=== PATIENT | female | born 2000 | race Caucasian/White ===

== ENCOUNTER 2023-04-22 10:29 | Outpatient (OUT) | payer BC, OTHER, SELFPAY ==
--- NOTE | 2023-04-22 10:32 | US_ITS ---
[address] [address] Patient Name: INO BUCHANAN MRN: [id number] date: 2000 Sex: F Assigned Patient Location: US Current Patient Location: [facility] [place] Accession/Order Number: [id number] Exam Date: 04/22/2023 10:33 Report Date: 04/22/2023 13:40 At the request of: HALIE BARNARD Procedure: US OB growth EXAMINATION: US OB growth HISTORY: SIZE INCONSISTENT WITH DATES COMPARISON: Ultrasound anatomy 01/20/2023 FINDINGS: Heart Rate: 153.0 bpm Number: 1.0 Position: CEPHALIC Amniotic Fluid Volume: 19.9 cm Maximum Vertical Pocket: 8.0 cm BIOMETRY: BPD: 8.6 cm cm; 34 weeks 4 days; 82% HC: 31.0 cmcm; 34 weeks 5 days; 49% AC: 29.3 cm cm; 33 weeks 2 days; 51% FL: 6.6 cm cm; 34 weeks 1 days; 64% EFW: 2276.2 grams; 57% FL/AC: 22.7 FL/BPD: 77.3 HC/AC: 1.1 GESTATIONAL AGE: Age by EDC: 33 weeks 2 days LEIDY by EDC: 06/08/2023 Age by US: 34 weeks 1 day LEIDY by US: 06/02/2023 US/US OB growth IMPRESSION: 1. Single live intrauterine with growth detailed above. 2. No evidence of a nuchal cord. Electronically authenticated by: ERIC LENNON Date: 04/22/2023 13:40
== END 2023-04-22 10:30 | disposition home or self-care (01) ==
LOC: US 10:29
PROVIDERS: Visit Provider Obstetrics & Gynecology
DX: O26.843 Uterine size-date discrepancy, third trimester (principal); Z3A.33 33 weeks gestation of pregnancy
CPT/HCPCS: 76816

== ENCOUNTER 2023-04-22 12:09 | Outpatient (OUT) | payer OTHER, BC, SELFPAY ==
--- NOTE | 2023-04-22 12:14 | US_ITS ---
[address] [address] Patient Name: INO BUCHANAN MRN: [id number] date: 2000 Sex: F Assigned Patient Location: [facility] Current Patient Location: Accession/Order Number: [id number] Exam Date: 04/22/2023 13:00 Report Date: 04/22/2023 13:38 At the request of: HALIE BARNARD Procedure: US OB BPP w non-stress EXAMINATION: US OB BPP w non-stress HISTORY: , itching COMPARISON: Ultrasound anatomy 01/20/2023 TECHNIQUE: Ultrasound biophysical profile was performed in the radiology department. BREATHING MOVEMENTS: 2.0 GROSS BODY MOVEMENTS: 2.0 TONE: 2.0 QUALITATIVE AMNIOTIC FLUID VOLUME: 2.0 PRESENTATION: CEPHALIC HEART RATE: 135.0 bpm bpm. AMNIOTIC FLUID VOLUME: 21.6 cm GESTATIONAL AGE: 33 weeks 2 days CONCLUSION: Total biophysical profile score 8.0. Electronically authenticated by: ERIC LENNON Date: 04/22/2023 13:38
[2023-04-22 12:23] VITALS: BP 116/68; PULSE 99
[2023-04-22 13:46] LABS: Alanine Aminotransferase 25 U/L (14-59); Albumin Globulin Ratio 0.6; Albumin Level 2.5 g/dL (3.4-5.0); Alkaline Phosphatase 173 U/L (46-116); Aspartate Amino Transferase 16 U/L (15-37); Bilirubin Direct 0.1 mg/dL (0.0-0.2); Bilirubin Total 0.2 mg/dL (0.2-1.0); Globulin 4.4 g/dL; Total Protein 6.9 g/dL (6.4-8.2)
[2023-04-23 17:07] LABS: Bile Acids 4.3 umol/L (0.0-10.0)
== END 2023-04-22 13:30 | disposition home or self-care (01) ==
LOC: FBCO 12:10 → FBC 12:14
PROVIDERS: Visit Provider Obstetrics & Gynecology
DX: O26.843 Uterine size-date discrepancy, third trimester (principal); O26.893 Other specified pregnancy related conditions, third trimester; Z3A.33 33 weeks gestation of pregnancy; L29.9 Pruritus, unspecified
CPT/HCPCS: 36415; 76816; 76818; 80076; 82239

== ENCOUNTER 2023-05-05 10:41 | Observation (INO) | payer OTHER, BC, SELFPAY ==
[2023-05-05 11:04] VITALS: BP 119/71; PULSE 115
[2023-05-05 11:15] LABS: Bilirubin Urine NEGATIVE (NEGATIVE); Blood Urine NEGATIVE (NEGATIVE); Clarity Urine CLEAR (CLEAR); Color Urine LT. YELLOW (YELLOW); Glucose Urine UA NEGATIVE (NEGATIVE); Ketones Urine NEGATIVE (NEGATIVE); Leukocyte Esterase Urine MODERATE (NEGATIVE); Nitrite Urine NEGATIVE (NEGATIVE); Protein Urine NEGATIVE (NEG/TRACE); Specific Gravity Urine 1.015 (1.005-1.025); Urobilinogen Urine 0.2 EU/dL (0.2-1.0); pH Urine 7.5 (5.0-9.0)
[2023-05-05 11:16] LABS: Urine Microscopic Indicated YES
[2023-05-05 11:23] LABS: Bacteria Urine TRACE #/HPF (NONE SEEN); Cast Seen? NONE SEEN #/LPF (NONE SEEN); Crystals Seen? None Seen #/HPF (None Seen); Mucus Urine TRACE (NONE SEEN); RBC Urine 0-2 #/HPF (0-2); Squamous Epithelial Cell Urine MODERATE #/LPF (NONE/RARE); Urine Culture Indicated YES
[2023-05-05 12:06] LABS: Basophils Percent Auto 0.3 % (0.2-2.0); Eosinophils Absolute Auto 0.1 10^3/uL (0.0-0.7); Eosinophils Percent Auto 0.7 % (0.9-7.0); Hematocrit 35.4 % (36.0-48.0); Hemoglobin 11.7 g/dL (12.0-16.0); Immature Granulocytes Abs Auto 0.09 10^3/uL (0.00-0.03); Lymphocytes Absolute Auto 1.7 10^3/uL (1.2-3.8); Lymphocytes Percent Auto 18.1 % (20.5-60.0); Mean Corpuscular HGB Conc 33.1 g/dL (29.9-35.2); Mean Corpuscular Hemoglobin 30.9 pg (26.7-34.0); Mean Corpuscular Volume 93.4 fL (81.0-99.0); Mean Platelet Volume 10.4 fL (9.5-13.5); Monocytes Absolute Auto 0.7 10^3/uL (0.3-0.8); Monocytes Percent Auto 7.6 % (1.7-12.0); Neutrophils Absolute Auto 6.6 10^3/uL (1.4-6.5); Neutrophils Percent Auto 72.3 % (43.0-75.0); Platelet Count 206 10^3/uL (150-450); Red Blood Count 3.79 10^6/uL (4.20-5.40); Red Cell Distribution Width 13.2 % (11.0-15.0); White Blood Count 9.2 10^3/uL (4.0-11.0)
[2023-05-05 12:21] LABS: Estimated GFR (African America >60 (>=60); Estimated GFR (Non-African Ame >60 (>=60)
[2023-05-05] MEDS: 0.9 % SODIUM CHLORIDE 1,000 ML 125 ML IV (12:29)
[2023-05-05] MEDS: CEFAZOLIN SODIUM/DEXTROSE,ISO 2 GM/50 ML PIGGYBACK IV (13:04)
== END 2023-05-05 13:34 | disposition home or self-care (01) ==
LOC: FBC 10:47
PROVIDERS: Admitting Provider Obstetrics & Gynecology; Visit Provider Obstetrics & Gynecology
DX: O26.899 Other specified pregnancy related conditions, unspecified trimester (principal); M54.9 Dorsalgia, unspecified; Z3A.00 Weeks of gestation of pregnancy not specified
CPT/HCPCS: 36415; 59025; 81001; 82565; 84520; 85025; 87086; 96374; G0378; G0379

== ENCOUNTER 2023-05-10 22:30 | Outpatient (REF) | payer OTHER, BC, SELFPAY | END 2023-05-10 22:31 | disposition home or self-care (01) | LOC: LAB 22:30 | PROVIDERS: Visit Provider Obstetrics & Gynecology | DX: Z34.93 Encounter for supervision of normal pregnancy, unspecified, third trimester (principal); Z3A.00 Weeks of gestation of pregnancy not specified | CPT/HCPCS: 87081 ==

== ENCOUNTER 2023-05-30 11:52 | Inpatient (IN) | payer OTHER, BC, SELFPAY ==
[2023-05-30] VITALS (22 sets, daily range): BP systolic 117–154; BP diastolic 68–89; PULSE 87–126; RESP 16–18; TEMP 36.4–37
--- NOTE | 2023-05-30 13:34 | PM.OBHP ---
OB - H&P: HPI History of Present Illness Chief complaint: LABOR : 2 Para: 0 Date of last menstrual period: 09/01/22 Gestational age based on last menstrual period: 38.5 Comments: WILL NOT AUGMENT LABOR UNLESS NEEDED History of Present Dating criteria: LMP confirmed by 1st trimester US care: good care Medical complications OB: none Labs Blood type: O (+) positive Rubella: immune RPR/VDLR: nonreactive GBS status: negative HBsAG: negative Review of Systems ROS Status of ROS 10 or more systems reviewed and unremarkable except as noted in history and below Meds Home Medications and Allergies Home Medications Medication Instructions Recorded Confirmed Type cephalexin 500 mg capsule 500 mg PO QID 10 days #40 caps 05/05/23 Rx Allergies Allergy/AdvReac Type Severity Reaction Status Date / Time No Known Drug Allergies Allergy Verified 04/22/23 13:32 Exam Constitutional Vital Signs, click to edit/add: Last Vital Signs Pulse 126 H 05/30/23 12:06 BP 141/82 05/30/23 12:06 Documenting provider has reviewed patient's vital signs: yes Common normals: no apparent distress, average body habitus, oriented x3, healthy appearing, alert and well nourished General appearance: cooperative HENMT Common normals: normocephalic and head/scalp atraumatic Eye Pupil: PERRL and accommodation reflex normal Neck & C-Spine Common normals: full ROM and supple Respiratory Common normals: normal respiratory effort Cardio Common normals: regular rate and regular rhythm GI Common normals: Normal to inspection, nondistended, normoactive bowel sounds present and soft to palpation Common normals: no CVA tenderness Manual OB Exam: dilated 2 cm, effaced 25% and station 0 Amniotic Fluid: clear Back & Pelvis Common normals: no CVA tenderness Extremity Common normals: normal to inspection, full ROM and no calf tenderness Neuro Common normals: CN's II-XII intact bilaterally, moves all extremities, no focal motor deficits and no sensory deficits noted Sensorium/orientation: awake, alert, oriented to person, oriented to place and oriented to time Motor exam: strength 5/5 throughout Psych Common normals: mental status grossly normal, thought process normal, cooperative and affect normal Appearance: grossly normal and well kempt OB - A/P Assessment and Plan (1) SROM (spontaneous rupture of membranes): Assessment and Plan: WAS SCHEDULED FOR INDUCTION AT 39 WEEKS, ADMITTED TODAY FOR LABOR (2) Uterine contractions: Assessment and Plan: HAVING SPONTANEOUS CONTRACTIONS AT TERM S/P SROM, WILL AUGMENT IF NEEDED TO ESTABLISH CONTRACTIONS EVERY 2 TO 4 MIN (3) Term : Assessment and Plan: RECORDS REVIEWED, GBS NEGATIVE, CAT I HEART TRACING Plan ADMITTED FOR LABOR
[2023-05-30 14:23] LABS: Hematocrit 34.3 % (36.0-48.0); Hemoglobin 11.8 g/dL (12.0-16.0); Mean Corpuscular HGB Conc 34.4 g/dL (29.9-35.2); Mean Corpuscular Hemoglobin 31.1 pg (26.7-34.0); Mean Corpuscular Volume 90.3 fL (81.0-99.0); Mean Platelet Volume 10.7 fL (9.5-13.5); Platelet Count 222 10^3/uL (150-450); Red Cell Distribution Width 13.8 % (11.0-15.0); White Blood Count 9.9 10^3/uL (4.0-11.0)
[2023-05-30 14:35] LABS: Amphetamine Screen Urine NEGATIVE (NEGATIVE); Barbiturates Screen Urine NEGATIVE (NEGATIVE); Benzodiazepines Screen Urine NEGATIVE (NEGATIVE); Buprenorphine Screen Urine NEGATIVE (NEGATIVE); Cannabinoid Screen Urine NEGATIVE (NEGATIVE); Cocaine Screen Urine NEGATIVE (NEGATIVE); Methadone Screen Urine NEGATIVE (NEGATIVE); Methamphetamines Screen Urine NEGATIVE (NEGATIVE); Opiate Screen Urine NEGATIVE (NEGATIVE); Oxycodone Screen Urine NEGATIVE (NEGATIVE); Phencyclidine Screen Urine NEGATIVE (NEGATIVE); Tricyclic Antidepressant Urine NEGATIVE (NEGATIVE)
--- NOTE | 2023-05-30 14:49 | W.PC.ACHO ---
Registration Status: ADM IN Primary Language: Guatemalan Preferred Language: Guatemalan Active Medications Generic Name Dose Route Start Last Admin Trade Name Freq PRN Reason Stop Dose Admin Carboprost Tromethamine 250 mcg 05/30/23 13:20 Carboprost Tromethamine 250 Mcg/Ml 1 Ml Vial IM Q15M PRN Bleeding Sodium Chloride 1,000 mls @ 125 mls/hr 05/30/23 13:30 Sodium Chloride 0.9% 1,000 Ml IV .Q8H ANTHONY Omeprazole 20 mg 05/30/23 13:30 Omeprazole 20 Mg Capsule.Dr PO QD ANTHONY Ondansetron HCl 4 mg 05/30/23 13:20 Ondansetron Pf 4 Mg/2 Ml Vial IV Q6H PRN Nausea And Vomiting Diet Category Date Time Status Regular Consistency Diet Diet 05/30/23 Lunch Active Consults Category Date Time Status Consult to Anesthesiology Routine Cons 05/30/23 13:25 Ordered IV Insertion/Site Date of IV Line Insertion [20g 05/30/23 right Hand] IV Insertion Time [20g right 13:45 Hand] Respiratory Oxygen Delivery Method Room Air
--- NOTE | 2023-05-30 17:28 | PC.NURSE ---
Pt eating jello & popsicle. Denies needs.
--- NOTE | 2023-05-30 19:20 | W.PC.ACHO ---
Registration Status: ADM IN Primary Language: Botswanan Preferred Language: Botswanan Active Medications Generic Name Dose Route Start Last Admin Trade Name Freq PRN Reason Stop Dose Admin Carboprost Tromethamine 250 mcg 05/30/23 13:20 Carboprost Tromethamine 250 Mcg/Ml 1 Ml Vial IM Q15M PRN Bleeding Sodium Chloride 1,000 mls @ 125 mls/hr 05/30/23 13:30 Sodium Chloride 0.9% 1,000 Ml IV .Q8H ANTHONY Oxytocin/Sodium Chloride 10 units in 500 mls @ 6 mls/hr 05/30/23 19:15 Pitocin 10 Unit/500 Ml-Ns IV Q24H ANTHONY Protocol 2 MILLIUNIT/MIN Oxytocin/Sodium Chloride 20 units in 1,000 mls @ 125 mls/hr 05/30/23 19:01 Pitocin 20 Unit/1,000 Ml-Ns IV 05/31/23 03:00 ONCE ONE Protocol Omeprazole 20 mg 05/30/23 13:30 Omeprazole 20 Mg Capsule.Dr PO QD ANTHONY Ondansetron HCl 4 mg 05/30/23 13:20 Ondansetron Pf 4 Mg/2 Ml Vial IV Q6H PRN Nausea And Vomiting Diet Category Date Time Status Regular Consistency Diet Diet 05/30/23 Lunch Active Consults Category Date Time Status Consult to Anesthesiology Routine Cons 05/30/23 13:25 Ordered IV Insertion/Site Date of IV Line Insertion [20g 05/30/23 right Hand] IV Insertion Time [20g right 13:45 Hand] Respiratory Oxygen Delivery Method Room Air
[2023-05-30] MEDS: 0.9 % SODIUM CHLORIDE 1,000 ML 125 ML IV ×2 (20:00→23:03)
[2023-05-30] MEDS: OXYTOCIN/0.9 % SODIUM CHLORIDE 10 UNITS/500 ML PLAST..BAG 6 UNIT IV (22:02)
--- NOTE | 2023-05-30 22:10 | PM.OBPN ---
OB - PN: Subj Subjective Patient comments: other (states contractions now painful) Narrative: HEART TRACING CAT I Exam Constitutional Vital Signs, click to edit/add: Last Vital Signs Temp 98.2 F 05/30/23 22:00 Pulse 93 H 05/30/23 22:00 Resp 18 05/30/23 22:00 BP 132/80 05/30/23 22:00 O2 Del Method Room Air 05/30/23 13:54 Bimanual exam- vagina & uterus: other (CERVIX 2 CM, 90 PERCENT, VERY POSTERIOR, -1 AND HEAD IS APPLIED) Amniotic Fluid: clear Results Labs Labs: Short CBC 05/30/23 Range/Units 13:50 WBC 9.9 (4.0-11.0) 10^3/uL Hgb 11.8 L (12.0-16.0) g/dL Hct 34.3 L (36.0-48.0) % Plt Count 222 (150-450) 10^3/uL OB - PN: A/P Assessment and Plan (1) SROM (spontaneous rupture of membranes): (2) Uterine contractions: Assessment and Plan: WILL START LOW DOSE PITOCIN TO ACHIEVE CONTRACTIONS EVERY 2 TO 4 MIN (3) Term : Assessment and Plan: deliver Plan , SROM CLEAR, LATENT PHASE LABOR, GBS NEG, CAT I FH TRACING, MINIMAL CHANGE IN CERVIX SINCE ADMISSION AT ABOUT 1 PM, WILL START LOW DOSE PITOCIN, WANT CONTRACTIONS EVERY 2 TO 4 MIN, MAY HAVE EPIDURAL WHEN DESIRED, IVF NOW RUNNING AT 125 CC PER HOUR Time Spent with Patient Time: Total time spent is greater than 50% in coordination of care (as documented) at patient's floor/unit and/or counseling patient: Total time spent with greater than 50% in coordination of care (as documented) at patient's floor/unit and/or counseling patient: less than 15 minutes
[2023-05-30] MEDS: FENTANYL CITRATE/PF 100 MCG/2 ML VIAL EPIDURAL ×2 (23:49→23:50)
[2023-05-30] MEDS: ROPIVACAINE HCL/PF 400 MG/200 ML PREMIX 10 MG EPIDURAL (23:51)
[2023-05-31] VITALS (60 sets, daily range): BP systolic 102–172; BP diastolic 55–94; PULSE 71–125; RESP 16–20; TEMP 36.1–37.1
[2023-05-31] MEDS: 0.9 % SODIUM CHLORIDE 1,000 ML 1000 ML IV (00:01)
[2023-05-31] MEDS: 0.9 % SODIUM CHLORIDE 1,000 ML 125 ML IV (05:14)
--- NOTE | 2023-05-31 05:58 | PM.ANIN ---
Anesthesiology - Interim Note Date of Service Date of service: 05/31/23 Interim Note Interim Note: Patient is a 23y.o. with active labor and epidural in place overnight. Occasional diminished variability with intermittent decelerations overnight and throughout early am with return to steady baseline after pitocin is discontinued and restarted accordingly. Currently comfortable with good variability. (AOC)Remained in house as indicated by primagravida status and nature of unsteady progress. Upon evaluation by attending OB/this am will evaluate for continued trial of labor as ROM is >12hrs or anticipatory Csection if indicated. Will transition care and plan to labor/delivery AOC at appropriate time of transition this morning.
[2023-05-31] MEDS: AMPICILLIN SODIUM 2,000 MG in 0.9 % SODIUM CHLORIDE 100 ML 100 MG IV (08:47)
[2023-05-31] MEDS: OMEPRAZOLE 20 MG CAPSULE.DR PO (09:30)
--- NOTE | 2023-05-31 12:24 | PM.OBPRCVD ---
Procedure Intrapartal events: None Induction method: none Delivery augmentation: pitocin Delivery monitor: external FHT and external uterine Route of delivery: Episiotomy Description: right mediolateral Laceration description: perineal - 4th degree Delivery repair: Vicryl and Chromic Estimated blood loss (mL): 300 Anesthesia type: Epidural Disposition: floor Delivery date: 05/31/23 Gender: female presentation: vertex Placental delivery description: Spontaneous cord description: 3 Vessels
[2023-05-31] MEDS: IBUPROFEN 600 MG TABLET PO ×2 (12:57→20:42)
--- NOTE | 2023-05-31 19:16 | W.PC.ACHO ---
Registration Status: ADM IN Primary Language: Burkinan Preferred Language: Burkinan Active Medications Generic Name Dose Route Start Last Admin Trade Name Dm PRN Reason Stop Dose Admin Acetaminophen 650 mg 05/31/23 12:24 Acetaminophen 325 Mg Tablet PO Q6H PRN Mild Pain Acetaminophen/Codeine Phosphate 1 tab 05/31/23 12:24 Acetaminophen With Codeine 1 Tab Tablet PO Q4H PRN Pain Scale 4-6 Acetaminophen/Codeine Phosphate 2 tab 05/31/23 12:24 05/31/23 16:08 Acetaminophen With Codeine 1 Tab Tablet PO 2 tab Q4H PRN Administration Pain Scale 7-10 Al Hydroxide/Mg Hydroxide 2,400 mg 05/31/23 12:24 Magnesium Hydroxide 2,400 Mg/10 Ml Oral.Susp PO Q6H PRN Dyspepsia Benzocaine/Menthol 1 applic 05/31/23 12:24 Benzocaine/Menthol 85 Gram Bottle TOPICAL Q2H PRN VAGINAL PAIN Carboprost Tromethamine 250 mcg 05/30/23 19:44 Carboprost Tromethamine 250 Mcg/Ml 1 Ml Vial IM 06/01/23 12:00 Q15M PRN Bleeding Diphtheria/Pertussis/Tetanus Vacc 0.5 ml 06/02/23 09:00 Adacel Diph,Pertuss(Acell),Tet Vac/Pf 0.5 Ml Adult Syringe IM 06/02/23 09:01 .ONCE ONE Docusate Sodium 100 mg 06/01/23 09:00 Docusate Sodium 100 Mg Capsule PO BID ANTHONY Sodium Chloride 1,000 mls @ 125 mls/hr 05/30/23 13:30 05/31/23 05:14 Sodium Chloride 0.9% 1,000 Ml IV 125 mls/hr .Q8H ANTHONY Administration Oxytocin 20 unit/ Sodium 1,002 mls @ 125 mls/hr 05/31/23 12:30 05/31/23 12:52 Chloride IV 05/31/23 20:29 125 mls/hr Q8H ANTHONY 125 mls/hr Administration Ibuprofen 600 mg 05/31/23 12:24 05/31/23 12:57 Ibuprofen 600 Mg Tablet PO 600 mg Q6H PRN Administration Moderate Pain Measles/Mumps/Rubella Vaccine Live 0.5 ml 06/02/23 09:00 Measles,Mumps,Rubella Vacc/Pf 0.5 Ml Vial SQ 06/02/23 09:01 .ONCE ONE Methylergonovine Maleate 0.2 mg 05/30/23 19:44 Methylergonovine Maleate 0.2 Mg/Ml Ampule IM 06/01/23 12:00 ONCE PRN Uterine Contractility/Contract Methylergonovine Maleate 0.2 mg 05/30/23 19:44 Methylergonovine Maleate 0.2 Mg Tablet PO 06/01/23 12:00 Q4H PRN Uterine Contractility/Contract Misoprostol 600 mcg 05/30/23 19:44 Misoprostol 100 Mcg Tablet PO 06/01/23 12:00 ONCE PRN Uterine Bleeding Misoprostol 800 mcg 05/30/23 19:44 Misoprostol 100 Mcg Tablet SL 06/01/23 12:00 ONCE PRN Uterine Bleeding Misoprostol 1,000 mcg 05/30/23 19:44 Misoprostol 100 Mcg Tablet ND 06/01/23 12:00 ONCE PRN Uterine Bleeding Omeprazole 20 mg 05/30/23 13:30 05/31/23 09:30 Omeprazole 20 Mg Capsule.Dr PO 20 mg QD ANTHONY Administration Ondansetron HCl 4 mg 05/30/23 13:20 Ondansetron Pf 4 Mg/2 Ml Vial IV Q6H PRN Nausea And Vomiting Oxytocin 10 unit 05/30/23 19:44 Oxytocin 10 Unit/Ml Vial IM 05/31/23 20:00 ONCE PRN Bleeding Senna 17.2 mg 05/31/23 20:00 Sennosides 8.6 Mg Tablet PO QHS PRN Constipation Simethicone 80 mg 05/31/23 12:24 Simethicone 80 Mg Tab.Chew PO QID PRN Abdominal Distention Temazepam 15 mg 05/31/23 20:00 Temazepam 15 Mg Capsule PO QHS PRN Sleep Witch Lily/Glycerin 1 pad 05/31/23 12:24 Glycerin/Witch Lily Pads TOPICAL Q2H PRN Pain Diet Category Date Time Status Regular Consistency Diet Diet 05/31/23 Dinner Active IV Insertion/Site Date of IV Line Insertion [20g 05/31/23 right Forearm] IV Insertion Time [20g right 12:15 Forearm] Respiratory Lung sounds [Bilateral clear Throughout] Renal Bladder Pattern Continent
[2023-06-01] MEDS: IBUPROFEN 600 MG TABLET PO ×3 (02:39→18:01)
[2023-06-01 05:05] LABS: Basophils Percent Auto 0.3 % (0.2-2.0); Eosinophils Absolute Auto 0.1 10^3/uL (0.0-0.7); Eosinophils Percent Auto 0.6 % (0.9-7.0); Hematocrit 30.1 % (36.0-48.0); Hemoglobin 9.9 g/dL (12.0-16.0); Immature Granulocytes Pct Auto 0.8 % (0.0-0.5); Lymphocytes Absolute Auto 2.1 10^3/uL (1.2-3.8); Lymphocytes Percent Auto 16.8 % (20.5-60.0); Mean Corpuscular HGB Conc 32.9 g/dL (29.9-35.2); Mean Corpuscular Hemoglobin 30.7 pg (26.7-34.0); Mean Corpuscular Volume 93.5 fL (81.0-99.0); Mean Platelet Volume 10.5 fL (9.5-13.5); Monocytes Percent Auto 7.6 % (1.7-12.0); Neutrophils Absolute Auto 9.4 10^3/uL (1.4-6.5); Neutrophils Percent Auto 73.9 % (43.0-75.0); Platelet Count 174 10^3/uL (150-450); Red Blood Count 3.22 10^6/uL (4.20-5.40); Red Cell Distribution Width 13.9 % (11.0-15.0); White Blood Count 12.7 10^3/uL (4.0-11.0)
--- NOTE | 2023-06-01 07:07 | W.PC.ACHO ---
Registration Status: ADM IN Primary Language: Nauruan Preferred Language: Nauruan Active Medications 0700- Report given to Deana Fierro RN Generic Name Dose Route Start Last Admin Trade Name Freq PRN Reason Stop Dose Admin Acetaminophen 650 mg 05/31/23 12:24 Acetaminophen 325 Mg Tablet PO Q6H PRN Mild Pain Acetaminophen/Codeine Phosphate 1 tab 05/31/23 12:24 06/01/23 02:40 Acetaminophen With Codeine 1 Tab Tablet PO 1 tab Q4H PRN Administration Pain Scale 4-6 Acetaminophen/Codeine Phosphate 2 tab 05/31/23 12:24 05/31/23 16:08 Acetaminophen With Codeine 1 Tab Tablet PO 2 tab Q4H PRN Administration Pain Scale 7-10 Al Hydroxide/Mg Hydroxide 2,400 mg 05/31/23 12:24 Magnesium Hydroxide 2,400 Mg/10 Ml Oral.Susp PO Q6H PRN Dyspepsia Benzocaine/Menthol 1 applic 05/31/23 12:24 Benzocaine/Menthol 85 Gram Bottle TOPICAL Q2H PRN VAGINAL PAIN Carboprost Tromethamine 250 mcg 05/30/23 19:44 Carboprost Tromethamine 250 Mcg/Ml 1 Ml Vial IM 06/01/23 12:00 Q15M PRN Bleeding Diphtheria/Pertussis/Tetanus Vacc 0.5 ml 06/02/23 09:00 Adacel Diph,Pertuss(Acell),Tet Vac/Pf 0.5 Ml Adult Syringe IM 06/02/23 09:01 .ONCE ONE Docusate Sodium 100 mg 06/01/23 09:00 Docusate Sodium 100 Mg Capsule PO BID ANTHONY Sodium Chloride 1,000 mls @ 125 mls/hr 05/30/23 13:30 05/31/23 05:14 Sodium Chloride 0.9% 1,000 Ml IV 125 mls/hr .Q8H ANTHONY Administration Ibuprofen 600 mg 05/31/23 12:24 06/01/23 02:39 Ibuprofen 600 Mg Tablet PO 600 mg Q6H PRN Administration Moderate Pain Measles/Mumps/Rubella Vaccine Live 0.5 ml 06/02/23 09:00 Measles,Mumps,Rubella Vacc/Pf 0.5 Ml Vial SQ 06/02/23 09:01 .ONCE ONE Methylergonovine Maleate 0.2 mg 05/30/23 19:44 Methylergonovine Maleate 0.2 Mg/Ml Ampule IM 06/01/23 12:00 ONCE PRN Uterine Contractility/Contract Methylergonovine Maleate 0.2 mg 05/30/23 19:44 Methylergonovine Maleate 0.2 Mg Tablet PO 06/01/23 12:00 Q4H PRN Uterine Contractility/Contract Misoprostol 600 mcg 05/30/23 19:44 Misoprostol 100 Mcg Tablet PO 06/01/23 12:00 ONCE PRN Uterine Bleeding Misoprostol 800 mcg 05/30/23 19:44 Misoprostol 100 Mcg Tablet SL 06/01/23 12:00 ONCE PRN Uterine Bleeding Misoprostol 1,000 mcg 05/30/23 19:44 Misoprostol 100 Mcg Tablet AR 06/01/23 12:00 ONCE PRN Uterine Bleeding Omeprazole 20 mg 05/30/23 13:30 05/31/23 09:30 Omeprazole 20 Mg Capsule.Dr PO 20 mg QD ANTHONY Administration Ondansetron HCl 4 mg 05/30/23 13:20 Ondansetron Pf 4 Mg/2 Ml Vial IV Q6H PRN Nausea And Vomiting Senna 17.2 mg 05/31/23 20:00 Sennosides 8.6 Mg Tablet PO QHS PRN Constipation Simethicone 80 mg 05/31/23 12:24 Simethicone 80 Mg Tab.Chew PO QID PRN Abdominal Distention Temazepam 15 mg 05/31/23 20:00 Temazepam 15 Mg Capsule PO QHS PRN Sleep Witch Lily/Glycerin 1 pad 05/31/23 12:24 Glycerin/Witch Lily Pads TOPICAL Q2H PRN Pain Diet Category Date Time Status Regular Consistency Diet Diet 05/31/23 Dinner Active IV Insertion/Site Date of IV Line Insertion [20g 05/31/23 right Forearm] IV Insertion Time [20g right 12:15 Forearm] Respiratory Lung sounds [Bilateral clear Throughout] Lung sounds [Bilateral clear Throughout] Oxygen Delivery Method Room Air Oxygen Delivery Method Room Air Cardiology Heart Sounds Strong,Regular Bowels Bowel Pattern No Bowel Movement Renal Bladder Pattern Continent Bladder Pattern Continent
--- NOTE | 2023-06-01 08:13 | P.OBPN_ITS ---
OB - PN: Subj Subjective Patient comments: no complaints [place] status: doing well [place] feeding status: exclusively Exam Constitutional Vital Signs, click to edit/add: Last Vital Signs Temp 98.7 F 05/31/23 23:30 Pulse 90 05/31/23 23:31 Resp 16 05/31/23 23:30 BP 130/81 05/31/23 23:31 O2 Del Method Room Air 05/31/23 23:30 Documenting provider has reviewed patient's vital signs: yes Common normals: no apparent distress General appearance: cooperative Orientation/consciousness: Yes awake, Yes oriented to person, Yes oriented to place and Yes oriented to time HENMT Common normals: normocephalic Neck & C-Spine Common normals: full ROM Lymph Lymphatic: no lymphadenopathy noted Chest Common normals: inspection of chest normal Respiratory Common normals: normal respiratory effort Effort & inspection: able to speak in complete sentences Auscultation: clear to auscultation bilaterally Cardio Common normals: regular rate and regular rhythm Rate: regular rate Rhythm: regular rhythm GI Inspection: normal to inspection Auscultation: normoactive bowel sounds Palpation: soft and firm Percussion: normal to percussion Common normals: no CVA tenderness Back & Pelvis Common normals: no CVA tenderness Extremity Common normals: normal to inspection Neuro Common normals: oriented x3 Psych Appearance: grossly normal Activity/motor behavior: appropriate eye contact Speech: normal speech Results Labs Labs: Short CBC 06/01/23 Range/Units 04:52 WBC 12.7 H (4.0-11.0) 10^3/uL Hgb 9.9 L (12.0-16.0) g/dL Hct 30.1 L (36.0-48.0) % Plt Count 174 (150-450) 10^3/uL OB - PN: A/P Assessment and Plan (1) SROM (spontaneous rupture of membranes): (2) Uterine contractions: (3) Term : Plan - Vaginal Delivery day: 1 Plan: routine care Comment: ordered sitz bath for patient for repair comfort. She is doing well and states the medications are helping. Encouraged ambulation, ice packs, Dermoplast spray, mya bottle and sitz bath as needed. PVU and is in agreement with plan of care. Time Spent with Patient Time: Total time spent is greater than 50% in coordination of care (as documented) at patient's floor/unit and/or counseling patient: Total time spent with greater than 50% in coordination of care (as documented) at patient's floor/unit and/or counseling patient: less than 15 minutes
[2023-06-01] MEDS: DOCUSATE SODIUM 100 MG CAPSULE PO ×2 (08:20→20:09)
[2023-06-01] MEDS: GLYCERIN/WITCH HAZEL PADS 1 PAD TOPICAL (08:47)
[2023-06-01 08:49] VITALS: BP 126/76; PULSE 105
[2023-06-01] MEDS: IRON POLYSACCHARIDE COMPLEX 180 MG CAPSULE PO (10:36)
[2023-06-01 15:20] VITALS: BP 117/73; PULSE 100
[2023-06-01 15:21] VITALS: RESP 16; TEMP 36.6
--- NOTE | 2023-06-01 16:18 | PC.NURSE ---
LC into room and discusses . Pt states Going really well , denies needing assistance with latching or of nipple tenderness at this time. Will return tomorrow and reassess pt needs prior to discharge.
[2023-06-01 23:59] VITALS: BP 122/71; PULSE 98
[2023-06-02] VITALS: PULSE 98; RESP 18; TEMP 36.4
[2023-06-02] MEDS: IBUPROFEN 400 MG TABLET 800 MG PO ×3 (02:07→20:36)
--- NOTE | 2023-06-02 07:16 | W.PC.ACHO ---
Registration Status: ADM IN Primary Language: Kyrgyz Preferred Language: Kyrgyz Active Medications 0715- Report given to Deana Fierro RN Generic Name Dose Route Start Last Admin Trade Name Freq PRN Reason Stop Dose Admin Al Hydroxide/Mg Hydroxide 2,400 mg 05/31/23 12:24 Magnesium Hydroxide 2,400 Mg/10 Ml Oral.Susp PO Q6H PRN Dyspepsia Benzocaine/Menthol 1 applic 05/31/23 12:24 Benzocaine/Menthol 85 Gram Bottle TOPICAL Q2H PRN VAGINAL PAIN Diphtheria/Pertussis/Tetanus Vacc 0.5 ml 06/02/23 09:00 Adacel Diph,Pertuss(Acell),Tet Vac/Pf 0.5 Ml Adult Syringe IM 06/02/23 09:01 .ONCE ONE Docusate Sodium 100 mg 06/01/23 09:00 06/01/23 20:09 Docusate Sodium 100 Mg Capsule PO 100 mg BID ANTHONY Administration Sodium Chloride 1,000 mls @ 125 mls/hr 05/30/23 13:30 05/31/23 05:14 Sodium Chloride 0.9% 1,000 Ml IV 125 mls/hr .Q8H ANTHONY Administration Ibuprofen 800 mg 06/01/23 19:23 06/02/23 02:07 Ibuprofen 400 Mg Tablet PO 800 mg Q8H PRN Administration Pain Measles/Mumps/Rubella Vaccine Live 0.5 ml 06/02/23 09:00 Measles,Mumps,Rubella Vacc/Pf 0.5 Ml Vial SQ 06/02/23 09:01 .ONCE ONE Omeprazole 20 mg 05/30/23 13:30 06/01/23 08:21 Omeprazole 20 Mg Capsule. PO Not Given QD ANTHONY Ondansetron HCl 4 mg 05/30/23 13:20 Ondansetron Pf 4 Mg/2 Ml Vial IV Q6H PRN Nausea And Vomiting Oxycodone/Acetaminophen 2 tab 06/01/23 19:23 06/02/23 04:11 Oxycodone Hcl/Acetaminophen 1 Tab Tablet PO 2 tab Q4H PRN Administration Pain Polysaccharide Iron Complex 180 mg 06/01/23 11:00 06/01/23 10:36 Iron Polysaccharide Complex 180 Mg Capsule PO 180 mg QD ANTHONY Administration Senna 17.2 mg 05/31/23 20:00 Sennosides 8.6 Mg Tablet PO QHS PRN Constipation Simethicone 80 mg 05/31/23 12:24 Simethicone 80 Mg Tab.Chew PO QID PRN Abdominal Distention Temazepam 15 mg 05/31/23 20:00 Temazepam 15 Mg Capsule PO QHS PRN Sleep Witch Lily/Glycerin 1 pad 05/31/23 12:24 06/01/23 08:47 Glycerin/Witch Lily Pads TOPICAL 1 pad Q2H PRN Administration Pain Respiratory Lung sounds [Bilateral clear Throughout] Lung sounds [Bilateral clear Throughout] Lung sounds [Bilateral clear Throughout] Oxygen Delivery Method Room Air Oxygen Delivery Method Room Air Oxygen Delivery Method Room Air Cardiology Heart Sounds Strong,Regular Heart Sounds Strong,Regular Heart Sounds Strong,Regular Bowels Bowel Pattern No Bowel Movement Bowel Pattern No Bowel Movement Renal Bladder Pattern Continent Bladder Pattern Continent Bladder Pattern Continent
[2023-06-02 08:11] VITALS: BP 125/70; PULSE 99
[2023-06-02] MEDS: IRON POLYSACCHARIDE COMPLEX 180 MG CAPSULE PO (08:18)
[2023-06-02] MEDS: DOCUSATE SODIUM 100 MG CAPSULE PO ×2 (08:19→20:37)
[2023-06-02 08:20] VITALS: RESP 17; TEMP 36.9
--- NOTE | 2023-06-02 08:44 | PC.NURSE ---
Discussion regarding and baby responses. crying and pushing at breast, returned to skin to skin and baby falls to sleep immediately. Discussed baby cues for feeding readiness. Allows baby to rest skin to skin while eats breaskfast.
--- NOTE | 2023-06-02 09:16 | XR_ITS ---
[address] [address] Patient Name: INO BUCHANAN MRN: [id number] date: 2000 Sex: F Assigned Patient Location: [facility] Current Patient Location: [facility] Accession/Order Number: [id number] Exam Date: 06/02/2023 10:40 Report Date: 06/02/2023 11:05 At the request of: HALIE BARNARD Procedure: XR hip RT 2V w/ pelvis PROCEDURE: XR hip RT 2V w/ pelvis HISTORY: rt hip leg pain post COMPARISON: None. FINDINGS: BONES:No fracture, acute abnormality, or significant arthropathy. SOFT TISSUES:No visible soft tissue swelling. EFFUSION:None visible. OTHER: Negative. XR/XR hip RT 2V w/ pelvis IMPRESSION: 1. Normal examination. Electronically authenticated by: ERIC LENNON Date: 06/02/2023 11:05
--- NOTE | 2023-06-02 09:39 | PC.NURSE ---
LC into room to assist with latching. Baby at right breast and shallow latch observed. Mom states I just feel like she could be deeper Noted signs of shallow latch and parents agree. Baby fights latch at right breast, then falls asleep. LC and mom discuss signs of over stimulation for NB. Mom switches infant to left breast, does well with positioning and latch technique, baby responds by lifting nose/chin and wide gape latches deeper at breast. Both parents able to notice difference in latch. Mom reports no pain with latch. Infant gives burst of sucks and pauses. Swallows noted with sucks. Parents able to identify swallows and deep latch. Verbalized understanding of education will call for next feed.
--- NOTE | 2023-06-02 12:48 | PC.NURSE ---
Pt request hand pump. Team[employer] collection kit into room and shown how to use. pt frustrated with hand expression at this time. Baby given 4 large drops of colostrum previously collected.
[2023-06-02 15:57] VITALS: BP 130/67; PULSE 92
[2023-06-02 16:01] VITALS: RESP 16
[2023-06-02 16:02] VITALS: TEMP 36.5
--- NOTE | 2023-06-02 20:54 | CT_ITS ---
The [address] [address] Patient Name: INO BUCHANAN MRN: [id number] date: 2000 Sex: F Assigned Patient Location: [facility] Current Patient Location: [facility] Accession/Order Number: [id number] Exam Date: 06/02/2023 21:50 Report Date: 06/02/2023 22:46 At the request of: HALIE BARNARD Procedure: CT pelvis wo con Examination:CT pelvis wo con INDICATION:pelvis pain, bulging to groin. COMPARISON:None. TECHNIQUE:Multiple thin section transaxial slices were acquired through the pelvis without contrast. Coronal and sagittal reconstructed images were reviewed. FINDINGS:There is expected enlargement of the uterus. The bladder is unremarkable. The visualized bowel loops are normal in caliber without acute inflammation. There is a trace amount of presacral edema. There is subcutaneous edema in the midline of the lower pelvis located inferior to the pubic symphysis most likely due to the status. There is no inguinal hernia. There is diastases of the midline of the abdominal wall musculature in the mid abdomen. No abnormal fluid collections are identified. Osseous structures of the bony pelvis are within normal limits. CT/CT pelvis wo con IMPRESSION: Expected enlargement of the uterus secondary to the status of this patient. There is edema in the subcutaneous soft tissues located inferior to the pubic symphysis also most likely related to the status of the patient. There is no evidence of inguinal hernia. Electronically authenticated by: JOYA ADAME Date: 06/02/2023 22:46
[2023-06-03 00:13] VITALS: BP 122/69; PULSE 98
[2023-06-03 00:14] VITALS: RESP 16; TEMP 36.8
[2023-06-03] MEDS: DOCUSATE SODIUM 100 MG CAPSULE PO (09:57)
[2023-06-03] MEDS: IBUPROFEN 400 MG TABLET 800 MG PO (09:57)
[2023-06-03] MEDS: OMEPRAZOLE 20 MG CAPSULE.DR PO (09:58)
[2023-06-03 10:12] VITALS: BP 123/75; PULSE 104
--- NOTE | 2023-06-03 12:51 | PC.NURSE ---
Parents tearful, baby frantic, not willing to sustain latch at breast. Infant down 11.2% in weight with elevated bili of 16.1, no stool since 0400 06/02/2023. Parents prefer breast but states we just want to help her right now . Accepts use of formula as a temporary measure to increase volume of feeds. Discussed at length , shown slow paced bottle feeding and father returns the demo. Mom aware of need to pump and continue to breastfeed. See Feeding Plan. Verbalized understanding of all.
--- NOTE | 2023-06-03 13:00 | PM.OBPN ---
OB - PN: Subj Subjective Interval history: complaints of significant rt hip pain, otherwise doing okay infant status: doing well Exam Constitutional Vital Signs, click to edit/add: Last Vital Signs Temp 98.2 F 06/03/23 00:14 Pulse 104 H 06/03/23 10:12 Resp 16 06/03/23 00:14 BP 123/75 06/03/23 10:12 O2 Del Method Room Air 06/02/23 00:00 Documenting provider has reviewed patient's vital signs: yes Common normals: no apparent distress Respiratory Common normals: normal respiratory effort and clear to auscultation bilaterally Cardio Common normals: regular rate and regular rhythm GI Common normals: Normal to inspection, nondistended, normoactive bowel sounds present Extremity Common normals: no clubbing, cyanosis or edema and no calf tenderness Right lower extremity: hip joint (complains of significant rt hip) OB - PN: A/P Assessment and Plan (1) SROM (spontaneous rupture of membranes): (2) Uterine contractions: (3) Term : Plan - Vaginal Delivery day: 1 Plan: routine care, discharge home and follow up 6 weeks (1week) Comment: xray and ct reviewed, will dc home, rx on chart, fu 1wk, precautions given Time Spent with Patient Time: Total time spent is greater than 50% in coordination of care (as documented) at patient's floor/unit and/or counseling patient: Total time spent with greater than 50% in coordination of care (as documented) at patient's floor/unit and/or counseling patient: less than 15 minutes
--- NOTE | 2023-06-03 13:07 | PM.OBPN ---
OB - PN: Subj Subjective Interval history: complaints of significant rt hip pain, otherwise doing okay Exam Constitutional Vital Signs, click to edit/add: Last Vital Signs Temp 98.2 F 06/03/23 00:14 Pulse 104 H 06/03/23 10:12 Resp 16 06/03/23 00:14 BP 123/75 06/03/23 10:12 O2 Del Method Room Air 06/02/23 00:00 Respiratory Common normals: clear to auscultation bilaterally Cardio Common normals: regular rate and regular rhythm GI Common normals: Normal to inspection, nondistended, normoactive bowel sounds present Extremity Common normals: no clubbing, cyanosis or edema and no calf tenderness OB - PN: A/P Assessment and Plan (1) SROM (spontaneous rupture of membranes): (2) Uterine contractions: (3) Term : Plan - day: 2 Comment: ct scan and xray reviewed, pain improving, precautions given, dc home Time Spent with Patient Time: Total time spent is greater than 50% in coordination of care (as documented) at patient's floor/unit and/or counseling patient: Total time spent with greater than 50% in coordination of care (as documented) at patient's floor/unit and/or counseling patient: less than 15 minutes
--- NOTE | 2023-06-03 13:09 | PM.OBPN ---
OB - PN: Subj Subjective Interval history: complaints of significant rt hip pain, otherwise doing okay Exam Constitutional Vital Signs, click to edit/add: Last Vital Signs Temp 98.2 F 06/03/23 00:14 Pulse 104 H 06/03/23 10:12 Resp 16 06/03/23 00:14 BP 123/75 06/03/23 10:12 O2 Del Method Room Air 06/02/23 00:00 Respiratory Common normals: clear to auscultation bilaterally Cardio Common normals: regular rate and regular rhythm GI Common normals: Normal to inspection, nondistended, normoactive bowel sounds present Extremity Common normals: no calf tenderness OB - PN: A/P Assessment and Plan (1) SROM (spontaneous rupture of membranes): (2) Uterine contractions: (3) Term : Plan - Vaginal Delivery day: 1 Plan: routine care Comment: rt hip-cont pain control, apply heat, considering xray Time Spent with Patient Time: Total time spent is greater than 50% in coordination of care (as documented) at patient's floor/unit and/or counseling patient: Total time spent with greater than 50% in coordination of care (as documented) at patient's floor/unit and/or counseling patient: less than 15 minutes
== END 2023-06-03 15:10 | disposition home or self-care (01) | DRG 768 ==
PROVIDERS: Obstetrics & Gynecology; Admitting Provider Obstetrics & Gynecology; Visit Provider Obstetrics & Gynecology
DX: O70.3 Fourth degree perineal laceration during delivery (principal); Z37.0 Single live birth; O76 Abnormality in fetal heart rate and rhythm complicating labor and delivery; Z3A.38 38 weeks gestation of pregnancy; O99.893 Other specified diseases and conditions complicating puerperium; M25.551 Pain in right hip
CPT/HCPCS: 36415; 59050; 59410; 72192; 73502; 80307; 85025; 85027; 86850; 86900; 86901; 96374; 96375; 96376; 97162; 97535

== ENCOUNTER 2023-06-07 08:35 | Outpatient (OUT) | payer BC, OTHER, SELFPAY ==
[2023-06-07 14:05] VITALS: BP 117/83; PULSE 100; RESP 18; TEMP 36.8; O2SAT 96
--- NOTE | 2023-06-07 14:11 | PC.NURSE ---
Pt and pleased with progress made over weekend with feedings, latching and infant care. Both very pleased with and become tearful talking about how much better things are than the first few days Mom had right hip pain after delivery, which required PT assistance. Has been doing exercises as prescribed and states feels so much better . Taking Motrin for discomfort of 4th degree tear only hip no longer needs medication. States is taking 1 percocet if needed daily. Yesterday did not need but will take one when returns home as has had 2 appointments back to back bottom is really uncomfortable right now Verbalized understanding of all review and denies further questions at this time.
== END 2023-06-07 13:50 | disposition home or self-care (01) ==
LOC: FBCO 08:39
PROVIDERS: Visit Provider Obstetrics & Gynecology
DX: Z39.2 Encounter for routine postpartum follow-up (principal)

== ENCOUNTER 2025-04-27 13:33 | Emergency (ER) | payer OTHER, SELFPAY ==
[2025-04-27 13:47] VITALS: BP 130/102; PULSE 104; TEMP 37.2; O2SAT 99; BMI 22.1
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
== END 2025-04-27 14:15 | disposition home or self-care (01) ==
LOC: ER 14:24
PROVIDERS: Emergency Provider Emergency Medicine; PCP Family Medicine
DX: T14.8XXA Other injury of unspecified body region, initial encounter (principal); V49.49XA Driver injured in collision with other motor vehicles in traffic accident, initial encounter; Z87.891 Personal history of nicotine dependence
CPT/HCPCS: 99281

== ENCOUNTER 2025-08-16 15:10 | Outpatient (OUT) | payer OTHER, SELFPAY ==
--- OUTSIDE RECORDS SUMMARY | 2025-08-16 14:00 | XMS_ITS | Encounter Summary ---
Author Organization [facility] Address [address] [place] [address] Care Team Providers Care Candles Pourer Name Role Phone Von Chappell MD Primary Care Provider [phone] Encounter Details DateTypeDepartmentCare Team (Latest Contact Info)Okfxpfjvuie55/06/2025 2:00 PM ESTAncillary Procedure [facility] [address] [place] [address] Missed menses; Positive urine test ([facility]) Social History Tobacco UseTypesPacks/DayYears UsedDateSmoking Tobacco: FormerCigarettesQuit: 09/10/2022lcohol UseStandard Drinks/WeekCommentsNever0 (1 standard drink = 0.6 oz pure alcohol)Estimated Date of WbgfygymYjqlbsoiTrk59/22/2026ased on last menstrual period of 05/25/2025Sex and Gender InformationValueDate Recorded Sex Assigned at KuehcVojofe59/12/2023 8:18 PM EDTLegal IjnEmfuxh59/15/2023 7:22 PM EDTGender GpmteuxtGcnvbd24/12/2023 8:18 PM EDTSexual OrientationNot on file documented as of this encounter Plan of Treatment DateTypeDepartmentCare Team (Latest Contact Info)Zhzjhpodqgo60/10/2025 2:50 PM ESTRoutine NOMGloria [address] [place] [address] Yfn Miranda DO [address] [place], [facility] [phone] (work) documented as of this encounter Procedures Procedure NamePriorityDate/TimeAssociated DiagnosisCommentsUS OB TRANSVAGINAL Efoljhj1308/16/2025 2:31 PM EST Missed menses Positive urine test ([facility]) documented in this encounter Results * US OB transvaginal (08/16/2025 2:31 PM EST)Anatomical RegionLateralityModality BodyUltrasoundSpecimen (Source)Anatomical Location / LateralityCollection Method / VolumeCollection TimeReceived Time08/16/2025 2:40 PM EST Impressions 08/16/2025 3:12 PM EST Findings consistent with a live intrauterine gestation, current sonographic age of 11 weeks and 1 days resulting in an estimated date of delivery of March 06, 2026. TRANSCRIBED BY: ? ELECTRONICALLY SIGNED BY: South Cota MD Narrative 08/16/2025 3:12 PM EST FINDINGS: A single intrauterine gestational sac is present. ??No subchorionic hemorrhage. ??A single pole is present. Normal heart rate at 187 beats per minute. ??Yolk sac also is seen. ?? Current sonographic age is 11 weeks and 1 days based on the crown-rump length measurement of ??4.4cm. ??Based on this age, current estimated date of delivery is March 06, 2026. ??No pelvic fluid or adnexal masspresent. ??Cervical length is 4.7 cm. Procedure Note South Cota MD - 08/16/2025 FINDINGS: A single intrauterine gestational sac is present. No subchorionichemorrhage. A single pole is present. Normal heart rate at187 beats per minute. Yolk sac also is seen. Current sonographic age is11 weeks and 1 days based on the crown-rump length measurement of 4.4cm.Based on this age, current estimated date of delivery is March 06, 2026. Nopelvic fluid or adnexal mass present. Cervical length is 4.7 cm. IMPRESSION: Findings consistent with a live intrauterine gestation, currentsonographic age of 11 weeks and 1 days resulting in an estimated date ofdelivery of March 06, 2026. TRANSCRIBED BY: ELECTRONICALLY SIGNED BY: South Cota MD Authorizing ProviderResult TypeResult StatusCorey Ruth DOIMG OB US PROCEDURES Final Result documented in this encounter Visit Diagnoses Diagnosis Missed menses Positive urine test ([facility]) documented in this encounter Care Teams Team MemberRelationshipSpecialtyStart DateEnd Date Von Chappell MD [address] [place] [address] PCP - GeneralFamily Medicine02/16/23documented as of this encounter
--- OUTSIDE RECORDS SUMMARY | 2025-08-16 14:30 | XMS_ITS | Encounter Summary ---
Author Organization [facility] Address [address] [place] [address] Care Team Providers Care Biodiesel Operations Manager Name Role Phone Von Chappell MD Primary Care Provider [phone] Reason for Visit * ReasonCommentsAmenorrheaPt complains of heart burn w/the . Pt does not desire any medication at this time. Pt states she will be doing TUMS for now. If pt changes her mind she will reach out to our office for the Om eprazole. Encounter Details DateTypeDepartmentCare Team (Latest Contact Info)Ezwgyobygpj33/06/2025 2:30 PM ESTInitial [facility] [address] [place] [address] [place] [address] GA: 11w6d Social History Tobacco UseTypesPacks/DayYears UsedDateSmoking Tobacco: FormerCigarettesQuit: 2Alcohol UseStandard Drinks/WeekCommentsNever0 (1 standard drink = 0.6 oz pure alcohol)Estimated Date of WpfxmsclKhipgpbnYvi98/22/2026ased on last menstrual period of 05/25/2025Sex and Gender InformationValueDate Recorded Sex Assigned at ZshikDoedhr87/12/2023 8:18 PM EDTLegal XnlVpgkbl38/15/2023 7:22 PM EDTGender MeqhtxjiVnrxwf65/12/2023 8:18 PM EDTSexual OrientationNot on file documented as of this encounter Last Filed Vital Signs Vital SignReadingTime TakenCommentsBlood Juyowzib066/7008/16/2025 2:36 PM EST Pulse--Temperature--Respiratory Rate--Oxygen Saturation--Inhaled Oxygen Concentration--Slxcdr97.3 kg (144 lb)08/16/2025 2:36 PM ESTHeight--Body Mass Index23.38002/17/2023 12:00 PM EDTdocumented in this encounter Progress Notes * Stephanie Paul MA - 08/16/2025 2:30 PM EST Reason for Appointment: Patient ID: Gaston Lewis is a 25 y.o. female who presents for Amenorrhea (Pt complains of heartburn w/the . Pt does not desire any medication at this time. Pt states she will be doing TUMS for now. If pt changes her mind she will reach out to our office for the Omeprazole. ) Patient presents today for a Nurse OB Intake appointment. Patient is 11w6d with a Estimated Date ofDelivery: 03/01/26 OB History Para Term AB Living 3 1 1 1 1 SAB IAB Ectopic Multiple Live Births 1 1 # Outcome Date GA Lbr Serafin/2nd Weight Sex Type Anes PTL Lv 3 Current 2 Term 05/31/23 38w6d F Vag-Spont ISI 1 SAB 04/2022 Current Medications: has a current medication list which includes the following prescription(s): ibuprofen. 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 Coronavirus infection 05/17/2023 Resolved Ambulatory Problems Diagnosis Date Noted No Resolved Ambulatory Problems No Additional Past Medical History Family History Problem Relation Name Age of Onset Endometriosis Mother No Known Problems Sister No Known Problems Brother Cancer Paternal Grandmother Endometriosis Other Aunt Breast cancer Other Maternal great aunt Social History Tobacco Use Smoking status: Former Current packs/day: 0.00 Types: Cigarettes Quit date: 09/10/2022 Years since quittin.9 Smokeless tobacco: Not on file Substance Use Topics Alcohol use: Never Drug use: Never Past Surgical History: Procedure Laterality Date HUMERUS FRACTURE SURGERY Right Pins HUMERUS FRACTURE SURGERY Left Casting No Known Allergies Vitals: Estimated body mass index is 23.38 kg/m?? as calculated from the following: Height as of 02/17/23: 5' 5.8 . Weight as of this encounter: 144 lb. BP: 110/70 Patient's last menstrual period was 05/25/2025. Assessment/Plan Diagnoses and all orders for this visit: Missed menses - US OB transvaginal; Future - Type and screen; Future - ABO/Rh; Future - CBC and differential - Hemoglobin A1c - RPR - Rubella antibody, IgG - Hepatitis B surface antigen - Hepatitis C antibody - HIV-1 and HIV-2 antibodies - Urine culture - POCT , urine manually resulted - POCT urinalysis dipstick manually resulted Positive urine test ([facility]) - US OB transvaginal; Future , unspecified gestational age ([facility]) - Type and screen; Future - ABO/Rh; Future - CBC and differential - Hemoglobin A1c - RPR - Rubella antibody, IgG - Hepatitis B surface antigen - Hepatitis C antibody - HIV-1 and HIV-2 antibodies - Rapid drug screen, urine; Future Encounter for supervision of normal first in first trimester ([facility]) - Rapid drug screen, urine; Future Nurse Note: Pt desires to do [facility] [employer]. Pt was advised to make sure she takes both the labsand [facility] to [facility] to have drawn. PVU. Pt will reach out to our office if she needs Omeprazole for her heart burn symptoms. Follow Up: Patient is to have labs drawn at [facility] and return to office for initial OB appointment with provider. Patient may call office as needed with any concerns or questions. Nurse Visit Completed by: Stephanie Paul MA documented in this encounter Plan of Treatment DateTypeDepartmentCare Team (Latest Contact Info)Feitcaoiihc51/10/2025 2:50 PM ESTRoutine [facility] [address] [place] [id number] Yfn Miranda, [address] [facility] [address] [place] [address] NameTypePriorityAssociated DiagnosesOrder ScheduleType and screenLabRoutine Missed menses , unspecified gestational age ([facility]) Expected: 08/16/2025 (Approximate), Expires: 6ABO/RhLabRoutine Missed menses , unspecified gestational age ([facility]) Expected: 08/16/2025 (Approximate), Expires: 08/16/2026BC and differentialLab Routine Missed menses , unspecified gestational age ([facility]) Ordered: 08/16/2025Hemoglobin G1lJnoMtxdavc Missed menses , unspecified gestational age ([facility]) Ordered: 08/16/2025RPRLabRoutine Missed menses , unspecified gestational age ([facility]) Ordered: 08/16/2025Rubella antibody, IgGLabRoutine Missed menses , unspecified gestational age ([facility]) Ordered: 08/16/2025Hepatitis B surface antigenLabRoutine Missed menses , unspecified gestational age ([facility]) Ordered: 08/16/2025Hepatitis C antibodyLabRoutine Missed menses , unspecified gestational age ([facility]) Ordered: 08/16/2025HIV-1 and HIV-2 antibodiesLabRoutine Missed menses , unspecified gestational age ([facility]) Ordered: 08/16/2025Urine cultureMicrobiologyRoutine Missed menses Ordered: 08/16/2025Rapid drug screen, urineLabRoutine , unspecified gestational age ([facility]) Encounter for supervision of normal first in first trimester ([facility]) Expected: 08/16/2025 (Approximate), Expires: 08/16/2026documented as of this encounter Procedures Procedure NamePriorityDate/TimeAssociated DiagnosisCommentsPOCT URINALYSIS BVGUGBRNKboxebw70/06/2025 2:38 PM EST Missed menses POCT , ZGPEBMgjwyay25/06/2025 2:37 PM EST Missed menses documented in this encounter Results * POCT urinalysis dipstick manually resulted (08/16/2025 2:38 PM EST)Component ValueRef RangeTest MethodAnalysis TimePerformed AtPathologist SignatureColor, UAYellowClarity, UAClearGlucose, UANegativeNegative - 2000(110) ++++ mg/dL Bilirubin, UANegativeNegative - 4(70) +++ mg/dLKetones, UANegativeNegative - 160(16) ++++ mg/dLSpec Grav, UA1.0301 - 1.03Blood, UANegativeNegative - 50 Merlin/mcLpH, UA5.55 - 9Protein, UANegativeNegative - 2000(20) ++++ mg/dL Urobilinogen, UA1.00.2 - 12 mg/dLLeukocytes, UANegativeNegative - 500+++ Nik/mcLNitrite, UANegativeNegative - PositiveSpecimen (Source)Anatomical Location / LateralityCollection Method / VolumeCollection TimeReceived Time Urine08/16/2025 2:38 PM EST Narrative Authorizing ProviderResult TypeResult StatusCorey Ruth DOPOINT OF CARE TEST ENTER/EDIT ORDERABLESFinal Result * (ABNORMAL) POCT , urine manually resulted (08/16/2025 2:37 PM EST) ComponentValueRef RangeTest MethodAnalysis TimePerformed AtPathologist SignaturePreg Test, UrPositiveNegativeSpecimen (Source)Anatomical Location / LateralityCollection Method / VolumeCollection TimeReceived TimeUrine 08/16/2025 2:37 PM EST Narrative Authorizing ProviderResult TypeResult StatusCorey Ruth DOPOINT OF CARE TEST ENTER/EDIT ORDERABLESFinal Result * US OB transvaginal (08/16/2025 2:31 PM [...] Cota MD Authorizing ProviderResult TypeResult StatusCorey Ruth [facility] OB US PROCEDURES Final Result documented in this encounter Visit Diagnoses Diagnosis Missed menses Positive urine test ([facility]) Missed menses Positive urine test ([facility]) , unspecified gestational age ([facility]) Encounter for supervision of normal first in first trimester ([facility]) documented in this encounter Care Teams Team MemberRelationshipSpecialtyStart DateEnd Date Von Chappell MD [address] [place] [address] PCP - GeneralFamily Medicine02/16/23documented as of this encounter
--- OUTSIDE RECORDS SUMMARY | 2025-08-16 15:16 | XMS_ITS | Clinical Summary ---
Author Organization [employer] [facility] tem Address [id number] [address] [place] [address] Care Team Providers Care [place] Nurse Name Role Phone Pcp, Not In System Primary Care Provider Unavail able Allergies No known active allergies Medications No known medications Social History Tobacco UseTypesPacks/DayYears UsedDateSmoking Tobacco: Former Vaping/E-cigarettesSmokeless Tobacco: NeverEstimated Date of Delivery PalzdlafNys40/16/2023Sex and Gender InformationValueDate RecordedSex Assigned at BirthNot on fileLegal EjcMmvnkp37/25/2022 4:31 PM EDTGender IdentityNot on file Sexual OrientationNot on file Last Filed Vital Signs Vital SignReadingTime TakenCommentsBlood Ewzjqcdq103/7507 1:51 PM EDT Iujtp575505/05/2022 1:51 PM DTBUiqaxtwklnx26.1 ??C (98.8 ??F)05/05/2022 1:51 PM EDTRespiratory Vfxd7354 1:51 PM EDTOxygen Fufwoojxna65%05/05/2022 1:51 PM EDTInhaled Oxygen Concentration--Kyzubz70.8 kg (145 lb)05/05/2022 1:51 PM EDT Tcfqxc602.6 cm (5' 6 )05/05/2022 1:51 PM EDTBody Mass Index23.407 1:51 PM EDT Plan of Treatment Health MaintenanceDue DateLast DoneCommentsDepression Jgyzoexdk66/09/2012Tobacco Wufssuapf67/09/2012dult BMI Vmrzpivmk65/09/2018DTaP,Tdap and Td Vaccines (1 - Tdap)2019Pap Smear08/09/2021Influenza Ljisqja3706/11/2025RSV ( or age 60+ yrs) (1 - 1-dose 75+ series)2075 [employer] Not on file Insurance Care Teams Team MemberRelationshipSpecialtyStart DateEnd Date Pcp, Not In System [place] [address] PCP - GeneralFamily Medicine05/04/22
--- OUTSIDE RECORDS SUMMARY | 2025-08-16 15:16 | XMS_ITS | Clinical Summary ---
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 [address] Missed menses; Positive urine test ([facility])from Last 3 Months Family History Medical HistoryRelationNameCommentsNo Known ProblemsBrotherEndometriosisMother Breast cancerOtherMaternal great auntEndometriosisOtherAuntCancerPaternal GrandmotherNo Known OycoocytIchwihXlrsumlfFryyUkgcmcNtdfrcbqEkrjird2Cwfphgdb AliveFatherAliveMotherAliveOtherPaternal GrandmotherSister1, healthy Social History Tobacco UseTypesPacks/DayYears UsedDateSmoking Tobacco: FormerCigarettesQuit: 09/10/2022 Tobacco Cessation:Counseling Given: Not Answered Alcohol UseStandard Drinks/WeekCommentsNever0 (1 standard drink = 0.6 oz pure alcohol)Estimated Date of DntkibkeBxxqqufqZmb97/22/2026ased on last menstrual period of 05/25/2025Sex and Gender InformationValueDate RecordedSex Assigned at MlzbyQaplob68/12/2023 8:18 PM EDTLegal KvoVianzw24/15/2023 7:22 PM EDTGender XdjekhxoWrwymg56/12/2023 8:18 PM EDTSexual OrientationNot on file Last Filed Vital Signs Vital SignReadingTime TakenCommentsBlood Utyqcfdo974/7008/16/2025 2:36 PM EST Pulse--Temperature--Respiratory Rate--Oxygen Saturation--Inhaled Oxygen Concentration--Evyfaf39.3 kg (144 lb)08/16/2025 2:36 PM ORQRnbjfr452.1 cm (5' 5.8 )02/17/2023 12:00 PM EDTBody Mass Index23.38002/17/2023 12:00 PM EDT Plan of Treatment DateTypeDepartmentCare Team (Latest Contact Info)Bxrzzwymhca70/10/2025 2:50 PM ESTRoutine [facility] [address] [facility] [facility] [phone] Yfn Miranda DO [address] [facility] [address] [place], [place] [id number] Health MaintenanceDue DateLast DoneCommentsCOVID-19 Vaccine ( season) 2025Influenza Vaccine (#1)2025Pneumococcal Vaccine: Pediatrics (0 to 5 Years) and At-Risk Patients (6 to 64 Years)Aged OutNo longer eligible based on patient's age to complete this topic Procedures Procedure NamePriorityDate/TimeAssociated DiagnosisCommentsPOCT URINALYSIS XIAFLRZRWwptxev67/06/2025 2:38 PM EST Missed menses POCT , RGYYUTvvwdfx92/06/2025 2:37 PM EST Missed menses US OB RJOJGILVVNGCXziajjy70/06/2025 2:31 PM EST Missed menses Positive urine test ([facility]) from Last 3 Months Results * POCT urinalysis dipstick manually resulted [...] Cota MD Authorizing ProviderResult TypeResult StatusCorey Ruth [facility]IB[facility] US PROCEDURES Final Result from Last 3 Months Insurance Care Teams Team MemberRelationshipSpecialtyStart DateEnd Date Von Chappell MD [address] [facility] [address] [place] [address] PCP - GeneralFamily Medicine02/16/23
[2025-08-16 15:49] LABS: Hematocrit 34.5 % (36.0-48.0); Hemoglobin 12.2 g/dL (12.0-16.0); Immature Granulocytes Abs Auto 0.03 10^3/uL (0.00-0.03); Immature Granulocytes Pct Auto 0.3 % (0.0-0.5); Lymphocytes Absolute Auto 1.9 10^3/uL (1.2-3.8); Mean Corpuscular HGB Conc 35.4 g/dL (29.9-35.2); Mean Corpuscular Hemoglobin 31.7 pg (26.7-34.0); Mean Corpuscular Volume 89.6 fL (81.0-99.0); Platelet Count 276 10^3/uL (150-450); Red Blood Count 3.85 10^6/uL (4.20-5.40); White Blood Count 8.9 10^3/uL (4.0-11.0)
[2025-08-16 16:05] LABS: Cannabinoid Screen Urine NEGATIVE (NEGATIVE); Methamphetamines Screen Urine NEGATIVE (NEGATIVE); Tricyclic Antidepressant Urine NEGATIVE (NEGATIVE)
[2025-08-18 07:08] LABS: Rubella Antibodies, IgG 1.82 index (Immune >0.99)
[2025-08-18 12:08] LABS: Rapid Plasma Reagin, Quant Non Reactive titer (NonRea<1:1)
== END 2025-08-16 15:11 | disposition home or self-care (01) ==
LOC: LAB 15:14
PROVIDERS: PCP Family Medicine; Visit Provider Obstetrics & Gynecology
DX: Z34.01 Encounter for supervision of normal first pregnancy, first trimester (principal); N92.6 Irregular menstruation, unspecified
CPT/HCPCS: 36415; 80307; 83036; 85025; 86592; 86762; 86803; 86850; 86900; 86901; 87086; 87340; 87389